=== PATIENT | female | born 1980 | race Two or more races ===

== ENCOUNTER 2020-06-10 08:03 | Inpatient (IN) | payer OTHER ==
[2020-06-07 09:23] LABS: APPEARANCE,URINE SLIGHTLY CLOUDY; BILIRUBIN, URINE NEGATIVE (NEGATIVE); COLOR,URINE PALE YELLOW; GLUCOSE, URINE (UA) NEGATIVE (NEGATIVE); KETONES,URINE NEGATIVE (NEGATIVE); LEUKOCYTE ESTERASE ,URINE 2+ (NEGATIVE); NITRITE,URINE NEGATIVE (NEGATIVE); PH,URINE 5 (4.5-8.0); PROTEIN,URINE NEGATIVE (NEGATIVE); UROBILINOGEN,URINE NORMAL MG/DL (0.0-1.0)
[2020-06-07 09:31] LABS: BASOPHILS % (AUTO) 0.6 % (0.0-2.0); EOSINOPHILS % (AUTO) 2.6 % (0.0-3.0); HEMATOCRIT 42.9 % (37.0-47.0); HEMOGLOBIN 13.6 G/DL (12.0-16.0); LYMPHOCYTES % (AUTO) 16.1 % (20.0-45.0); MEAN CORPUSCULAR VOLUME 89 FL (80-99); MONOCYTES % (AUTO) 8.8 % (1.0-10.0); NEUTROPHILS % (AUTO) 71.9 % (45.0-75.0); PLATELET COUNT 387 K/UL (150-450); RED BLOOD COUNT 4.79 M/UL (4.20-5.40); RED CELL DISTRIBUTION WIDTH 13.2 % (11.6-14.8); WHITE BLOOD COUNT 8.1 K/UL (4.8-10.8)
[2020-06-07 09:36] LABS: ANION GAP 9 mmol/L (5-15); BLOOD UREA NITROGEN 17 mg/dL (7-18); CALCIUM 9.6 MG/DL (8.5-10.1); CARBON DIOXIDE 27 MMOL/L (21-32); CHLORIDE 104 MMOL/L (98-107); CREATININE 0.7 MG/DL (0.55-1.30); POTASSIUM 4.1 MMOL/L (3.5-5.1); SODIUM 140 MMOL/L (136-145)
[2020-06-07 09:38] LABS: INR 0.9 (0.9-1.1)
--- NOTE | 2020-06-07 14:08 | Diagnostic Imaging Report ---
Procedure: XRAY Chest 2v Reason for study: Shortness of breath. Preoperative exam. Comparison films: None. FINDINGS: There is a left Port-A-Cath in place. Linear atelectasis or scarring noted left mid lung. Vascularity is normal. The lung titus are clear bilaterally. Cardiac and mediastinal silhouette are within normal limits. CP angles are sharp. The bony thorax appear unremarkable. IMPRESSION: NO ACUTE CARDIOPULMONARY DISEASE.
--- NOTE | 2020-06-08 12:44 | Pre-op HX & Phy Repo 2 SIG ---
DATE OF ADMISSION: 06/10/2020 SCHEDULED FOR SURGERY: June 10, 2020. HISTORY OF PRESENT ILLNESS: The patient is a 40-year-old female (date of tomorrow ) who presented in October 2019 with a right breast mass that she stated had been present for 2 years. It was located at 4 o'clock in the right breast, 4 cm from the nipple measuring 2.6 x 2.5 x 3.4 cm. Core biopsy revealed invasive ductal carcinoma, poorly differentiated, estrogen receptor, progesterone receptor, and HER2 negative. Ki-67 was high 73%. The patient had no prior history or family history of breast disease or breast cancer. She is 2, para 2, and had regular menstrual periods. Physical exam at that time revealed a large 5 cm mass in the inner right breast which was not fixed to the chest wall or to the skin. She was seen by Oncology and received a complete course of neoadjuvant chemotherapy. However in mid April, she became COVID positive on multiple tests and the chemotherapy was put on hold. She was seen in consultation by Infectious Disease who reported that the patient had mild COVID symptoms onset in mid March and having been asymptomatic for much longer than 20 days, recommended we proceed with surgery after my discussion with the Infectious Diseases commercial sales consultant May 04, 2020. We then scheduled surgery delaying it for the last chemotherapy treatment which was given the last week of April. PAST MEDICAL HISTORY: MEDICATIONS: Compazine and Zofran. ALLERGIES: None. OPERATIONS: None. REVIEW OF SYSTEMS: 2, para 2, having regular menstrual periods. PHYSICAL EXAMINATION: VITAL SIGNS: The patient is 5 feet. Weight 169 pounds. VITAL SIGNS: Within normal limits. HEENT: Within normal limits. LUNGS: Clear. HEART: Regular rhythm. BREASTS: Moderately large and ptotic. The left breast is unremarkable. The right breast has a persistent mass in the inner breast between 2 and 4 o'clock between the areola in the periphery of the right breast measuring 3 x 4 cm, which is not fixed to the underlying chest wall. The patient underwent ultrasound revealing a solid mass at 4 o'clock 4 cm from the nipple measuring 2.2 x 2.1 x 3.7 cm slightly decreased in size prior to the chemotherapy. There were no abnormal lymph nodes in the left axilla. There is no axillary or supraclavicular lymphadenopathy. ABDOMEN: Soft. PELVIC: Per primary care. RECTAL: Per primary care. EXTREMITIES: Without edema. NEUROLOGIC: Physiologic. IMPRESSION: Invasive ductal carcinoma, right breast, status post neoadjuvant chemotherapy, triple negative markers. PLAN: Right breast partial mastectomy and right axillary lymph node biopsy. DISCUSSION: I have had a full discussion with the patient regarding the nature of her condition, the nature of the surgery, indications, alternatives, options, and risks including bleeding, infection, distortion of the breast and/or nipple, need for additional treatments following surgery, which would include additional surgical resection, radiation therapy, additional chemotherapy, hormonal, endocrine therapy. Discussed the risks of surgery including, neuritis or neuralgia of the extremities, swelling of the extremity, and all questions have been answered. The patient understands and agrees to proceed. Kannan Bates M.D. DR: Dayana JOB#: [id number] CC:
[~2020-06-10] VITALS: Ht 152.4 cm; Wt 77.1 kg
[2020-06-10] VITALS (15 sets, daily range): BP systolic 96–123; BP diastolic 49–105
[~2020-06-10 08:03] MED LIST: ACETAMINOPHEN500 MG ORAL; BENADRYL25 M3 PO
[2020-06-10] MEDS ORDERED: MELATONIN GUMMIES PO (08:27)
[2020-06-10] MEDS ORDERED: Bacitracin 50000 Units Vial ONE (09:35)
[2020-06-10] MEDS ORDERED: NeoSporin Gu Irrig 1ml Amp IRRIG ONE (09:35)
[2020-06-10] MEDS ORDERED: NS Irrig 1000ml IRRIG ONE ×3 (09:42→10:41)
[2020-06-10] MEDS ORDERED: Rocuronium Bromide 50mg/5ml Inj IV ONE (09:52)
[2020-06-10] MEDS ORDERED: Succinylcholine 20mg/ml 10ml vial ONE (09:52)
[2020-06-10] MEDS ORDERED: fentaNYL 100 mcg/2 mL IV ONE (10:07)
[2020-06-10] MEDS ORDERED: Midazolam 2mg/2ml Inj ONE (10:07)
[2020-06-10] MEDS ORDERED: Lidocaine 1% MPF 10mg/ml 5ml ONE (10:14)
--- NOTE | 2020-06-10 10:18 | Pre-Procedure Note/Attestation ---
Pre-Procedure Note/Attestation Complete Prior to Procedure Planned Procedure: right Procedure Narrative: right breast partial mastectomy and right axillary lymph node biopsy Indications for Procedure Pre-Operative Diagnosis: invasive ductal carcinoma right breast Attestation I attest that I discussed the nature of the procedure; its benefits; risks and complications; and alternatives (and the risks and benefits of such alternatives), prior to the procedure, with the patient (or the patient's legal patient accounting representative). I attest that, if there was a reasonable possibility of needing a blood transfusion, the patient (or the patient's legal patient accounting representative) was given the [facility] standardized written summary, pursuant to the Tera Bruce Blood Safety Act ([place] Health and Safety Code # 1645, as amended). I attest that I re-evaluated the patient just prior to the surgery and that there has been no change in the patient's H&P, except as documented below: none Kannan Bates MD Jun 10, 2020 10:18
[2020-06-10] MEDS ORDERED: LR 1000ml ONE (10:30)
[2020-06-10] MEDS ORDERED: NS Irrig 1000ml ONE (10:30)
[2020-06-10] MEDS ORDERED: Sterile Water Irrig 1000ml IRRIG ONE (10:30)
[2020-06-10] MEDS ORDERED: Neostigmine 1mg/ml 10ml Inj ONE (10:30)
--- NOTE | 2020-06-10 11:12 | Anethesia Preoperative Eval ---
Anesthesia Pre-op PMH/ROS General Date of Evaluation: Jun 10, 2020 Time of Evaluation: 10:25 Anesthesiologist: Tika ASA Score: ASA 2 Mallampati Score Class I : Soft palate, uvula, fauces, pillars visible Class II: Soft palate, uvula, fauces visible Class III: Soft palate, base of uvula visible Class IV: Only hard plate visible Mallampati Classification: Class II Surgeon: Paulo Diagnosis: R breast CA Surgical Procedure: Mastectomy Anesthesia History: none Family History: no anesthesia problems Allergies: Coded Allergies: No Known Allergies (Unverified , 06/10/20) Medications: see eMAR Patient NPO?: Yes Past Medical History Cardiovascular: Denies: HTN, CAD, TN, valve dz, arrhythmia, other Pulmonary: Reports: other - Covid convalescemt mild symptoms, test +; Denies: asthma, COPD, EM Gastrointestinal/Genitourinary: Reports: GERD - mild; Denies: CRI, ESRD, other Neurologic/Psychiatric: Reports: depression/anxiety; Denies: dementia, CVA, TIA, other Endocrine: Denies: DM, hypothyroidism, steroids, other HEENT: Denies: cataract (L), cataract (R), glaucoma, [place] (L), [place] (R), other Hematology/Immune: Denies: anemia, DVT, bleeding disorder, other Musculoskeletal/Integumentary: Denies: OA, RA, DJD, DDD, edema, other Other: other - overweight PMH Narrative: as above PSxH Narrative: T&A, , Port-a-cath placement Anesthesia Pre-op Phys. Exam Physician Exam Last Vital Signs Date Time Temp Pulse Resp B/P (MAP) Pulse Ox O2 Delivery O2 Flow Rate FiO2 06/10/20 08:28 97.9 77 18 120/64 98 Room Air Constitutional: NAD Neurologic: CN 2-12 intact Cardiovascular: RRR, no M/R/G Respiratory: CTA Airway Exam Mallampati Score: Class II MO: full Neck: flexible ROM: full Teeth: intact Dentures: no upper, no lower Anesthesia Pre-op A/P Labs see chart Studies Pre-op Studies: EKG - NSR Risk Assessment & Plan Assessment: ASA 2 Plan: GA with ETT Status Change Before Surgery: No Pre-Antibiotics Drug: Ancef 1gr. Given Within 1 Hr of Incision: Yes Time Given: 10:52 Jm Villela MD Jun 10, 2020 11:12
[2020-06-10] MEDS ORDERED: LR 1000ml 1,000 ML IVLG SCH (11:15)
[2020-06-10] MEDS ORDERED: Morphine Sulfate 10mg/ml Inj ONE (11:15)
[2020-06-10] MEDS ORDERED: Hydromorphone 0.5mg/0.5ml inj IVP PRN (11:15)
[2020-06-10] MEDS ORDERED: Ketorolac 30mg Inj IV PRN (11:15)
[2020-06-10] MEDS ORDERED: Glycopyrrolate 0.2mg/ml 1ml Vial ONE (11:15)
[2020-06-10] MEDS ORDERED: Sodium Chloride 10ml vial INJ ONE (11:15)
[2020-06-10] MEDS ORDERED: DiphenhydrAMINE 50mg/ml Inj IVP PRN (11:15)
[2020-06-10] MEDS ORDERED: Midazolam 2mg/2ml Inj IVP PRN (11:15)
--- NOTE | 2020-06-10 12:49 | Immediate Post-Op Evaluation ---
Immediate Post-Op Evalulation Immediate Post-Op Evalulation Procedure: R breast partial mastectomy with axillary l/n dissection Date of Evaluation: Jun 10, 2020 Time of Evaluation: 12:47 IV Fluids: 1100 Blood Products: none Estimated Blood Loss: 50 Urinary Output: none Blood Pressure Systolic: 116 Blood Pressure Diastolic: 72 Pulse Rate: 78 Respiratory Rate: 20 O2 Sat by Pulse Oximetry: 99 Temperature (Fahrenheit): 97.6 Pain Score (1-10): 2 Nausea: No Vomiting: No Complications none Patient Status: reacts, patent, extubated, none Hydration Status: adequate Jm Villela MD Jun 10, 2020 12:49
--- NOTE | 2020-06-10 12:54 | Brief Operative Note ---
Immediate Post Operative Note Operative Note Pre-op Diagnosis: invasive ductal carcinoma right breast Procedure: right breast partial mastectomy and right axillary lymph node biopsy Post-op Diagnosis: same Post-op Diagnosis: same as pre-op Findings: consistent w/pre-op dx studies Surgeon: surya Anesthesiologist: liz Anesthesia: general Specimen: yes - right breast cancer, right axillary lymph nodes Complications: none Condition: stable Fluids: see anesthesia record Estimated Blood Loss: minimal Drains: ANIKET Implant(s) used?: No Kannan Bates MD Jun 10, 2020 12:54
[2020-06-10] MEDS ORDERED: Metoclopramide 10mg/2ml Inj IVP PRN (13:00)
[2020-06-10] MEDS ORDERED: HYDROmorphone 1mg/ml Carpuject SUBQ PRN (13:00)
--- NOTE | 2020-06-10 13:43 | 48 Hour Post Anesthesia Eval ---
Post Anesthesia Evaluation Procedure: R breast partial mastectomy with axillary l/n dissection Date of Evaluation: Jun 10, 2020 Time of Evaluation: 13:42 Blood Pressure Systolic: 102 0: 56 Pulse Rate: 64 Respiratory Rate: 18 Temperature (Fahrenheit): 97.6 O2 Sat by Pulse Oximetry: 98 Airway: patent Nausea: No Vomiting: No Pain Intensity: 2 Hydration Status: adequate Cardiopulmonary Status: stable Mental Status/LOC: patient returned to baseline Follow-up Care/Observations: n/a Post-Anesthesia Complications: none Follow-up care needed: N/A Jm Villela MD Jun 10, 2020 13:43
--- NOTE | 2020-06-10 13:54 | Cardiology Report ---
APPROVED REPORT EKG Measurement Heart [id number] <Conclusion> Normal sinus rhythm Normal ECG
--- NOTE | 2020-06-10 14:29 | Operative Note - Dictated ---
DATE OF OPERATION: 06/10/2020 SURGEON: Kannan Bates MD. GRAPE CRUSHER: None. ANESTHESIOLOGIST: Jm Villela MD. TYPE OF ANESTHESIA: General. PREOPERATIVE DIAGNOSIS: Invasive ductal carcinoma, right breast, status post neoadjuvant chemotherapy. POSTOPERATIVE DIAGNOSIS: Invasive ductal carcinoma, right breast, status post neoadjuvant chemotherapy. OPERATION PERFORMED: Right breast partial mastectomy and right axillary lymph node biopsy. DESCRIPTION OF PROCEDURE: The patient was taken to the operating room and under general anesthesia with sequential compression device stockings in place, she was prepped and draped in the usual fashion. Despite the neoadjuvant chemotherapy, the patient still had a 3 cm mass at the medial right breast. A curvilinear incision was made and flaps dissected circumferentially achieving hemostasis with cautery with large tumor vessels controlled with the Thunderbeat vessel sealing electrosurgical device. A wide partial mastectomy was performed down to the chest wall incorporating pectoralis fascia. The specimen was oriented with sutures anterior, superior, and medial and given off the field. The pathologist inspected the tissue and found that the margins were clear circumferentially. The field was irrigated with sterile water and then antibiotic solution and hemostasis carefully achieved with cautery. The incision was closed with interrupted 3-0 Vicryl deep dermal subcutaneous sutures followed by continuous 4-0 Monocryl subcuticular suture. A vertical right axillary incision was made achieving hemostasis with cautery and incising the clavipectoral fascia. A lower level dissection was performed because there was a large lymph node present and the dissection was performed using the Thunderbeat vessel sealing device with good hemostasis. Through a separate stab incision inferolaterally, a 10 flat [place] drain was placed into the axilla and sutured the skin with a 2-0 nylon skin suture. The field was irrigated with sterile water and then antibiotic solution and hemostasis was secured. The clavipectoral fascia was closed with interrupted 3-0 Vicryl, subcutaneous tissue closed with interrupted 3-0 Vicryl and the skin closed with continuous 4-0 Monocryl subcuticular suture. Tincture of benzoin and half-inch Steri-Strips were applied to both incisions followed by dry sterile dressing. A postoperative surgical vest was applied. The patient tolerated the procedure well and left the operating room in good condition. Kannan Bates M.D. DR: SVETLANA JOB#: [id number] CC:
[2020-06-10] MEDS: D5 1/2NS w/KCl 20mEq 1,000 ML IV SCH (17:21)
[2020-06-10] MEDS: HYDROcodone/Acetamin 5/325 tab ORAL PRN ×2 (17:21→23:53)
[2020-06-10] MEDS: ceFAZolin sod 1 GM in D5W 55 ML IV SCH (20:13)
--- NOTE | 2020-06-10 20:40 | NUR ---
NURSE NOTES: The patient is alert and oriented x4 and doesn't seem to be in any active distress at this time.She is on 3 liters of oxygen via NC with SPo2 @ 95% .She is S/P right breast mastectomy and is tolerating well. She is able to self re-position herself without any difficulty.IV line is noted in the left hand 20g that is patent and asymptomatic. Will continue to monitor as indicated.
[2020-06-11] VITALS: BP 98/50
[2020-06-11 04:00] VITALS: BP 90/49
[2020-06-11] MEDS: D5 1/2NS w/KCl 20mEq 1,000 ML IV SCH (04:21)
[2020-06-11] MEDS: ceFAZolin sod 1 GM in D5W 55 ML IV SCH (04:21)
--- NOTE | 2020-06-11 07:24 | NUR ---
NURSE HAND-OFF: Important Events on Shift:Alert and cooperative, can ambulate to bathroom with steady gait Patient Status: Diet: Pending Orders: Pending Results/Labs: Pending MD notification: Latest Vital Signs: Temperature 97.9 , Pulse 72 , B/P 90 /49 , Respiratory Rate 18 , O2 SAT 99 , Nasal Cannula, O2 Flow Rate 3.0 . Vital Sign Comment: Latest Anthony Fall Score: 20 Fall Risk: Low Risk Safety Measures: Call light Within Reach, Bed Alarm Zone 1, Side Rails Side Rails x1, Bed position Low and Locked. Fall Precautions: Yellow Socks Yellow Gown Patient Fall Education Report given to .
[2020-06-11 08:00] VITALS: BP 100/69
--- NOTE | 2020-06-11 08:00 | NUR ---
NURSE NOTES: Pt lying in bed w/bed in lowest position and call light within reach. Pt A&Ox4, VSS, and in no apparent distress. IV site intact/asymptomatic w/IVF infusing; surgical bra/dressing C/D/I; and ANIKET drain to suction. Will continue to monitor.
[2020-06-11] MEDS: HYDROcodone/Acetamin 5/325 tab ORAL PRN (08:42)
--- NOTE | 2020-06-11 09:36 | General Progress Note ---
Progress Note Progress Note Doing welll - taking [place] prn pain right breast and axilla incisions clean and dry wit intact steri-strips ANIKET 16cc serosang Imp: Stable Plan; discharge with ANIKET drain f/u office 06/16 instructions/limitations/supplies discussed/provided Rx [place] 5/325 #20 Kannan Bates MD Jun 11, 2020 09:36
--- NOTE | 2020-06-11 10:45 | NUR ---
NURSE NOTES: Escorted pt downstairs in stable condition to family member's vehicle and w/all belongings accounted for. Instructed pt on how/when to empty and record ANIKET drain and to take [place] or Ibuprofen as needed for pain. Provided pt w/D/C summary, dressing supplies, and removed ID wristband and H/L prior to D/C.
--- NOTE | 2020-06-11 11:47 | NUR ---
CASE MANAGEMENT:REVIEW 06/10/20 SI: INVASIVE DUCTAL CARCINOMA OF RT BREAST 97.9 77 18 120/64 98% ON RA IS: TO SURGERY FOR: RT BREAST PARTIAL MASTECTOMY AND RT AXILLARY LYMPH NODE BIOPSY IV ANCEF Q8HRS IVF@75/HR IV DILAUDID PRN PAIN : TO MED/SURG POST OP 06/11/20 DISCHARGE HOME WITH ANIKET DRAIN
--- NOTE | 2020-06-13 10:39 | Discharge Summary ---
Discharge Summary Discharge Summary _ Date of admission: 06/10/2020 Date of discharge: 06/11/[address] Bates History of Present Illness and Brief Hospital Course Ms. Velez is a 40-year-old female who presented to [facility] for a scheduled surgery. Patient presented in October 2019 with a right breast mass that had been present for 2 years. It was located at 4 o'clock in the right breast, 4 cm from the nipple measuring 2.6 x 2.5 x 3.4 cm. Core biopsy revealed invasive ductal carcinoma, poorly differentiated, estrogen receptor, progesterone receptor, and HER2 negative. Ki-67 was high 73%. The patient had no prior history or family history of breast disease or breast cancer. Patient was seen by an oncologist and received a complete course of neoadjuvant chemotherapy. Patient underwent right breast partial mastectomy and right axillary lymph node biopsy. Patient tolerated the procedure well and left the operating room in good condition. The details of the procedure can be found in the operative note by Dr. Bates. Patient was closely monitored after the procedure. Patient was educated on how and when to empty and record ANIKET drain and take [place] or ibuprofen as needed for pain. Patient was medically stable and was discharged on 06/11/2020. Consultants: None Discharge Condition Improved and stable Discharge Activity Advance as tolerated Discharge Diet Regular Final diagnoses Invasive ductal carcinoma, right breast, s/p neoadjuvant chemotherapy s/p right breast partial mastectomy and right axillary lymph node biopsy. I have been assigned to dictate discharge summary for this account. I was not involved in the patient's management Ephraim Rankin Jun 13, 2020 10:39
== END 2020-06-11 10:40 | disposition home or self-care (01) | DRG 363 ==
LOC: SUR 08:03 → 4E 15:50
PROC: 07T50ZZ Resection of Right Axillary Lymphatic, Open Approach (ICD-10-PCS; 2020-06-10)
PROC: 0HBT0ZZ Excision of Right Breast, Open Approach (ICD-10-PCS; principal; 2020-06-10 10:30)
DX: C50.311 Malignant neoplasm of lower-inner quadrant of right female breast (principal); Z17.1 Estrogen receptor negative status [ER-]; Z92.21 Personal history of antineoplastic chemotherapy; Z86.16 Personal history of COVID-19
CPT/HCPCS: 36415; 71046; 80048; 81001; 81025; 85025; 85610; 85730; 93005; 94003; 94150; J2250; J2405; J2710